=== PATIENT | female | born 1980 | race Caucasian/White ===

== ENCOUNTER 2020-03-01 08:29 | Emergency (ER) | payer OTHER ==
--- NOTE | 2020-03-01 08:42 | EDM.PDOC ---
ED HPI GENERAL MEDICAL PROBLEM - General Chief Complaint: Neck Problem Stated Complaint: SEVERE NECK PAIN [id number] Time Seen by Provider: 03/01/20 08:42 Source of Information: Reports: Patient, RN, RN Notes Reviewed History Limitations: Reports: No Limitations, Physical Impairment (Unable to turn head) - History of Present Illness INITIAL COMMENTS - FREE TEXT/NARRATIVE: Patient presents to ER with complaint of neck pain that began Thursday and has progressively gotten worse. Patient denies any injury or heavy lifting out of the norm. States the muscle tension has become enough that she cannot turn her head from right to left without pain or tip her head back. Patient states pain is in the neck laterally, bilaterally and extends to the base of the skull. Denies headache at this time. Patient denies fever or chills. Denies nausea, vomiting, diarrhea, recent illness, chest pains or shortness of breath. Patient admits to intermittent numbness and tingling that does not last very long. Patient denies any health history, although states she has had recent kidney stones that have not moved recently. Patient states she is tested routinely for COVID-19, and has had consistent negative tests. Onset: Gradual Neck Pain Score (Numeric/FACES): 5 - Related Data Allergies Allergy/AdvReac Type Severity Reaction Status Date / Time No Known Allergies Allergy Verified 03/01/20 08:18 Home Meds: Home Meds . 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 Musculoskeletal History: Reports: None Neurological History: Reports: None Psychiatric History: Reports: None Endocrine/Metabolic History: Reports: None Hematologic History: Reports: None Immunologic History: Reports: None Oncologic (Cancer) History: Reports: None Dermatologic History: Reports: None - Infectious Disease History Infectious Disease History: Reports: Chicken Pox - Past Surgical History Head Surgeries/Procedures: Reports: None Female Surgical History: Reports: Section, Hysterectomy Other Female Surgeries/Procedures: 3 C sec Social & Family History - Tobacco Use Smoking Status *Q: Current Every Day Smoker Years of Tobacco use: 15 Packs/Tins Daily: 0.5 Second Hand Smoke Exposure: No - Caffeine Use Caffeine Use: Reports: Coffee, Soda - Recreational Drug Use Recreational Drug Use: No ED ROS GENERAL - Review of Systems Review Of Systems: Comprehensive ROS is negative, except as noted in HPI. ED EXAM, UPPER BACK/NECK PAIN - Physical Exam Exam: See Below Exam Limited By: Physical Impairment General Appearance: Alert, WD/WN, Mild Distress Eye Exam: Bilateral Eye: EOMI, PERRL (R -3 -Brisk, L -2 -brisk) Ears Exam: Normal External Exam, Normal Canal, Hearing Grossly Normal, Normal TMs Nose Exam: Normal Inspection, Normal Mucousa, No Blood Throat/Mouth Exam: Normal Inspection, Normal Voice, No Airway Compromise Head Exam: Atraumatic, Normocephalic Neck Exam: Limited Range of Motion, Painful Range of Motion, Stiff Neck, Tenderness, Tender Lateral Nexus Criteria: No: Posterior, Midline Cervical Tenderness, Evidence of Intoxication, Altered Level of Consciousness, Focal Neurological Deficit, Painful Distraction Injuries Cardiovascular/Respiratory: Regular Rate, Rhythm, No M/R/G, Normal Peripheral Pulses, No JVD, Normal Breath Sounds, No Respiratory Distress GI/Abdominal: Normal Bowel Sounds, Soft, Non-Tender, No Organomegaly, No Distention, No Abnormal Bruit, No Mass (Female) Exam: Deferred Rectal (Female) Exam: Deferred Back Exam: Normal Inspection, Full Range of Motion, NT Extremities: Normal Inspection, Normal Range of Motion, Non-Tender, No Pedal Edema, Normal Capillary Refill 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 Tested, No Motor/Sensory Deficits, Alert, Normal Mood/Affect, Oriented x 3 Psychiatric: Normal Affect, Normal Mood Skin Exam: Normal Color, Warm/Dry Lymphatic: No Adenopathy Course - Vital Signs Last Recorded V/S: Last Vital Signs Temp 98.1 F 03/01/20 08:31 Pulse 103 H 03/01/20 08:31 Resp 16 03/01/20 08:31 BP 115/72 03/01/20 08:31 Pulse Ox 100 03/01/20 08:31 - Orders/Labs/Meds Labs: Laboratory Tests 03/01/20 03/01/20 Range/Units 09:00 09:00 WBC 8.1 (5.0-10.0) 10^3/uL RBC 4.81 (4.2-5.4) 10^6/uL Hgb 15.0 (12.0-16.0) g/dL Hct 44.0 (37.0-47.0) % MCV 91.5 (80-100) fL MCH 31.2 (27.0-34.0) pg MCHC 34.1 (33.0-35.0) g/dL Plt Count 245 (150-450) 10^3/uL Neut % (Auto) 62.6 (42.2-75.2) % Lymph % (Auto) 21.7 (20.5-50.1) % Pershing % (Auto) 12.8 H (2-8) % Eos % (Auto) 2.5 (1.0-3.0) % Baso % (Auto) 0.4 (0.0-1.0) % Sodium 140 (136-145) mmol/L Potassium 3.7 (3.5-5.1) mmol/L Chloride 102 (98-107) mmol/L Carbon Dioxide 28 (21-32) mmol/L Anion Gap 13.7 H (7-13) mEq/L BUN 7 (7-18) mg/dL Creatinine 0.61 (0.55-1.02) mg/dL Est Cr Clr Drug Dosing 114.77 mL/min Estimated GFR (MDRD) > 60 BUN/Creatinine Ratio 11.5 (No establ ref range) Glucose 82 (74-99) mg/dL Calcium 8.7 (8.5-10.1) mg/dL Total Bilirubin 0.4 (0.2-1.0) mg/dL AST 11 L (15-37) U/L ALT 17 (14-59) U/L Alkaline Phosphatase 61 (46-116) U/L C-Reactive Protein 0.4 (0.0-0.9) mg/dL Total Protein 7.3 (6.4-8.2) g/dL Albumin 3.9 (3.4-5.0) g/dL Globulin 3.4 Albumin/Globulin Ratio 1.1 Meds: Medications Discontinued Medications Generic Name Dose Route Start Last Admin Trade Name Freq PRN Reason Stop Dose Admin Ketorolac Tromethamine 30 mg 03/01/20 09:46 03/01/20 09:55 Toradol IM 03/01/20 09:47 30 mg ONETIME ONE Administration Orphenadrine Citrate 60 mg 03/01/20 09:46 03/01/20 09:55 Norflex IM 03/01/20 09:47 60 mg ONETIME ONE Administration Departure - Departure Time of Disposition: 10:18 Disposition: Home, Self-Care 01 Condition: Fair Clinical Impression: Muscle spasm, Cervical radiculopathy - Discharge Information *PRESCRIPTION DRUG MONITORING PROGRAM REVIEWED*: No *COPY OF PRESCRIPTION DRUG MONITORING REPORT IN PATIENT ABBI: No Instructions: Muscle Cramps and Spasms, [id number], Cervical Radiculopathy, [id number] Forms: ED Department Discharge Additional Instructions: May use ibuprofen 600 to 800 mg every 6 to 8 hours as needed for pain May also use Tylenol as directed for pain Rx: Flexeril (cyclobenzaprine) Alternate heat and ice Rest Follow-up with your primary care provider if no improvement Return to the ER with any worsening of symptoms Consider chiropractic, massage, physical therapy Sepsis Event Note (ED) - Evaluation Sepsis Screening Result: No Definite Risk - Focused Exam Vital Signs: Vital Signs Temp Pulse Resp BP Pulse Ox 03/01/20 08:31 98.1 F 103 H 16 115/72 100
[2020-03-01 09:26] LABS: ANION GAP 13.7 mEq/L (7-13); CHLORIDE,CL 102 mmol/L (98-107); SODIUM,NA 140 mmol/L (136-145)
--- NOTE | 2020-03-01 09:27 | CT ---
PROCEDURE INFORMATION: Exam: CT Head Without Contrast Exam date and time: 03/01/2020 9:05 AM Age: 40 years old Clinical indication: Pain; Headache not specified; Additional info: Severe headache/neck pain TECHNIQUE: Imaging protocol: Computed tomography of the head without contrast. Radiation optimization: All CT scans at this facility use at least one of these dose optimization techniques: automated exposure control; mA and/or kV adjustment per patient size (includes targeted exams where dose is matched to clinical indication); or iterative reconstruction. COMPARISON: No relevant prior studies available. FINDINGS: Brain: No acute intracerebral abnormality or injury. No acute infarct or intracerebral bleed. Normal brain. [facility] Stroke Program Early CT Score (ASPECTS score) = 10. Ventricles: No ventriculomegaly. Bones/joints: Unremarkable. No acute fracture. Paranasal sinuses: Visualized sinuses are unremarkable. No fluid levels. Mastoid air cells: Visualized mastoid air cells are well aerated. Soft tissues: Unremarkable. IMPRESSION: 1. No acute intracerebral abnormality or injury. No acute infarct or intracerebral bleed. 2. Normal brain. 3. [facility]ai Stroke Program Early CT Score (ASPECTS score) = 10.
--- NOTE | 2020-03-01 09:38 | CT ---
PROCEDURE INFORMATION: Exam: CT Cervical Spine Without Contrast Exam date and time: 03/01/2020 9:05 AM Age: 40 years old Clinical indication: Neck pain; Additional info: Severe headache/neck pain TECHNIQUE: Imaging protocol: Computed tomography images of the cervical spine without contrast. Radiation optimization: All CT scans at this facility use at least one of these dose optimization techniques: automated exposure control; mA and/or kV adjustment per patient size (includes targeted exams where dose is matched to clinical indication); or iterative reconstruction. COMPARISON: No relevant prior studies available. FINDINGS: Vertebrae: No acute fractures seen in the cervical spine. The cervical spine alignment shows mild loss of lordosis above C5. The loss of lordosis could be a technical artifact due to flexed-neck positioning of the patient in the CT scanner or the presence of a cervical collar. Other causes could be pain related to muscular spasm or whiplash injury and/or ligamentous laxity. A plain film radiographic flexion-extension cervical spine series might be of added diagnostic benefit, if there is any clinical suspicion for acute ligamentous instability at C4/C5. Discs/Spinal canal/Neural foramina: No significant spinal canal or neuroforaminal stenosis. Soft tissues: Calcification is seen in the anterior longitudinal ligament of C1-C2 on image 57 of series 9. Otherwise normal prevertebral and posterior paraspinal soft tissues. Lungs: Lung apices are normal. IMPRESSION: 1. No acute fractures seen in the cervical spine. 2. The cervical spine alignment shows mild loss of lordosis above C5. The loss of lordosis could be a technical artifact due to flexed-neck positioning of the patient in the CT scanner or the presence of a cervical collar. Other causes could be pain related to muscular spasm or whiplash injury and/or ligamentous laxity. A plain film radiographic flexion-extension cervical spine series might be of added diagnostic benefit, if there is any clinical suspicion for acute ligamentous instability at C4/C5. 3. No significant spinal canal or neuroforaminal stenosis.
[2020-03-01] MEDS ORDERED: Orphenadrine 60 MG/2 ML Inj IM ONE (09:46)
[2020-03-01] MEDS ORDERED: Ketorolac 30 MG/ML SDV IM ONE (09:46)
== END 2020-03-01 10:30 | disposition home or self-care (01) ==
LOC: DL.ED 08:29
DX: M54.12 Radiculopathy, cervical region (principal); M62.838 Other muscle spasm; F17.210 Nicotine dependence, cigarettes, uncomplicated
CPT/HCPCS: 36415; 70450; 72125; 80053; 85025; 86140; 96372; 99283; 99284; J1885; J2360